=== PATIENT | male | born 1975 | race African-American/Black ===

== ENCOUNTER 2017-01-11 09:50 | Emergency (ER) | payer OTHER ==
[~2017-01-11] VITALS: Ht 175.3 cm; Wt 99.7 kg
[~2017-01-11 09:50] MED LIST: CLEOCIN150 MG PO; HYDROCODON-ACE1 EAC7 PO; MOTRIN600 MG PO
[2017-01-11 10:07] VITALS: BP 151/86
== END 2017-01-11 12:27 | disposition home or self-care (01) ==
LOC: EME 09:50
DX: H00.015 Hordeolum externum left lower eyelid (principal)
CPT/HCPCS: 99281; 99283

== ENCOUNTER 2017-04-03 16:20 | Emergency (ER) | payer OTHER ==
[~2017-04-03] VITALS: Ht 175.3 cm; Wt 100.2 kg
[2017-04-03] MEDS ORDERED: FLEXERIL10 MG PO (17:46)
[2017-04-03] MEDS ORDERED: NAPROSYN500 MG PO (17:46)
[2017-04-03 18:08] VITALS: BP 150/70
== END 2017-04-03 18:07 | disposition home or self-care (01) ==
LOC: EME 16:20
DX: M54.2 Cervicalgia (principal); V49.40XA Driver injured in collision with unspecified motor vehicles in traffic accident, initial encounter
CPT/HCPCS: 99281; 99283